=== PATIENT | female | born 1995 | race Caucasian/White ===

== ENCOUNTER 2016-10-22 19:34 | Emergency (ER) | payer OTHER ==
[~2016-10-22] VITALS: Ht 154.9 cm; Wt 70.2 kg
[2016-10-22 19:39] VITALS: TEMP 37; Ht 154.9 cm; Wt 70.2 kg
[2016-10-22] MEDS ORDERED: BCPILLS PO (20:25)
[2016-10-22] MEDS ORDERED: FLUO20CA35 PO (20:25)
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
[2016-10-22 21:35] VITALS: BP 99/63; PULSE 73; O2SAT 97
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
== END 2016-10-22 21:36 | disposition home or self-care (01) ==
LOC: EDBD 19:34 → C.EDC 19:36
DX: M54.2 Cervicalgia (principal); V43.62XA Car passenger injured in collision with other type car in traffic accident, initial encounter; Z79.899 Other long term (current) drug therapy; Z88.1 Allergy status to other antibiotic agents